=== PATIENT | female | born 1935 | race Caucasian/White ===

== ENCOUNTER → 2019-03-08 | Outpatient (CLI) | payer MEDICARE, BC ==
[~2019-03-08] MED LIST: REGADENOSON 0.4 MG/5 ML DISP.SYRIN. IV ONE
--- NOTE | 2019-03-08 12:28 | PCVCIMAG ---
APPROVED REPORT Imaging Protocol: Rest Tc-99m/Stress Tc-99m 1 day Study performed: 03/08/2019 10:03:00 Indication: CAD, Dyspnea Patient Location: Out-Patient Stress Nurse: Teresa Whitlock RN, Penelope Christianson RN NM Tech:Sree Velasquez [id number] Ht: 5 ft 6 in Wt: 165 lbs BSA: 1.84 m2 HR: 55 bpm BP: 176/79 mmHg BMI: 26.62 Rhythm: Sinus Bradycardia, Incomplete RBBB, RVH Medical History Medical History: Age, Hyperlipidemia, HTN, CAD, Dm non insulin Medications: Atorvastatin, Metformin Allergies: multiple, not related Previous Cardiac Procedures: PCI Exercise History: Physically active Physical Disabilities: Uses cane for chronic dizziness Resting Data Rest SPECT myocardial perfusion imaging was performed in supine position 45 minutes following the intravenous injection of 10 mCi of Tc-99m Sestamibi. Time of rest injection: 09 Date: 03/08/2019 Administration Route: IV Administration Site: Left Arm Pharmacologic Stress Pharmacologic stress test was performed by injecting Regadenoson 0.4 mg IV push over 10-15 seconds immediately followed by the intravenous injection of 31.8 mCi of Tc-99m Sestamibi. Time of stress injection: 1045 Date: 03/08/2019 Administration Route: IV Administration Site: Left Arm Gated Stress SPECT was performed 45 minutes after stress injection. The images were gated to evaluate regional wall motion and calculate left ventricular ejection fraction. Stress Test Details Stress Test: Pharmacologic stress testing performed using 0.4 mg of regadenoson per 5 mL given IV over 10 seconds. Reason for pharmacologic stress test: Chronic dizziness. HRMax Heart Rate (APMHR): 134 bpm Resting HR: 55 bpmTarget HR (85% APMHR): 113 bpm Max HR Achieved: 80 bpm % of APMHR: 59 Recovery HR: 75 bpm BP Resting BP: 176/79 mmHg Max BP: 156/71 mmHg Recovery BP: 149/66 mmHg ECG Resting ECG: Sinus Bradycardia, Incomplete RBBB Stress ECG: Sinus Rhythm, Incomplete RBBB ST Change: Non-ischemic Arrhythmia: PAC's Recovery ECG: Sinus Rhythm, Incomplete RBBB, RVH Clinical Reason for Termination: Completed protocol Stress Symptoms: Chest pressure Exercise duration: min 55 sec Symptoms resolved during recovery. Study Quality Study: Good Artifact: Mild Breast artifact Study Data Post stress, the left ventricular ejection was 75%.. SSS: 2 SRS: 0 SDS: 2 TID = 1.00. Perfusion There is a small area of mildly reduced uptake in the apical segment of the anterior wall which is seen on the stress images as well as the resting images. This area thickens and moves normally and is most consistent with attenuation artifact. Wall Motion Normal left ventricular wall motion. Nuclear Conclusion ECG Findings: negative for ischemia Clinical Findings: non-diagnostic Nuclear Findings: negative for ischemia Exercise Capacity: not assessed Left Ventricular Function: normal This study is of low probability for inducible ischemia or prior infarct. Normal global and segmental LV systolic function. Artifact: Mild Breast artifact
== END | disposition home or self-care (01) ==
LOC: PCVCIMAG 09:30
PROVIDERS: ATTEND Internal Medicine Cardiovascular Disease
DX: I25.10 Atherosclerotic heart disease of native coronary artery without angina pectoris (principal); R06.00 Dyspnea, unspecified; I10 Essential (primary) hypertension; E11.9 Type 2 diabetes mellitus without complications; Z79.82 Long term (current) use of aspirin
CPT/HCPCS: 78452; 93017; A9500; G0463; J2785

== ENCOUNTER → 2019-05-17 | Outpatient (CLI) | payer MEDICARE, BC | END | disposition home or self-care (01) | LOC: PCVCCLINIC 14:11 | PROVIDERS: ATTEND Internal Medicine Cardiovascular Disease | DX: I10 Essential (primary) hypertension (principal); I25.10 Atherosclerotic heart disease of native coronary artery without angina pectoris; R42 Dizziness and giddiness; E78.00 Pure hypercholesterolemia, unspecified; Z79.82 Long term (current) use of aspirin | CPT/HCPCS: 93005; G0463 ==

== ENCOUNTER → 2019-09-30 | Outpatient (CLI) | payer MEDICARE, BC | END | disposition home or self-care (01) | LOC: PCVCCLINIC 15:31 | PROVIDERS: ATTEND Internal Medicine Cardiovascular Disease | DX: I10 Essential (primary) hypertension (principal); I25.10 Atherosclerotic heart disease of native coronary artery without angina pectoris; R42 Dizziness and giddiness; E78.00 Pure hypercholesterolemia, unspecified; M19.90 Unspecified osteoarthritis, unspecified site; G47.33 Obstructive sleep apnea (adult) (pediatric); E11.9 Type 2 diabetes mellitus without complications; E78.5 Hyperlipidemia, unspecified; Z88.0 Allergy status to penicillin; Z79.82 Long term (current) use of aspirin; Z79.899 Other long term (current) drug therapy; Z90.49 Acquired absence of other specified parts of digestive tract | CPT/HCPCS: 36415 ==